=== PATIENT | female | born 1995 | race Caucasian/White ===

== ENCOUNTER 2023-09-04 09:48 | Emergency (ER) | payer MEDICAID ==
[~2023-09-04] VITALS: Ht 154.9 cm; Wt 65.3 kg
[2023-09-04] MEDS ORDERED: LIDO2SOL26 MT (10:53)
[2023-09-04] MEDS ORDERED: CLIN300C70 PO (10:53)
[2023-09-04 10:59] VITALS: BP 140/80; PULSE 80; RESP 18; TEMP 97.4; O2SAT 98
== END 2023-09-04 11:01 | disposition home or self-care (01) ==
LOC: ER 09:48
DX: K13.79 Other lesions of oral mucosa (principal); Z79.2 Long term (current) use of antibiotics; Z79.899 Other long term (current) drug therapy

== ENCOUNTER 2023-10-04 00:07 | Emergency (ER) | payer MEDICAID ==
[~2023-10-04] VITALS: Ht 162.6 cm; Wt 86.2 kg
[~2023-10-04 00:07] MED LIST: CLIN300C70 PO; LIDO2SOL26 MT
[2023-10-04] MEDS: NALOXONE HCL 1MG/ML 2ML SYRINGE IV ONE (00:45)
[2023-10-04 01:08] VITALS: PULSE 90; RESP 19; O2SAT 93
[2023-10-04 01:17] LABS: Basophils # (auto) 0 10 ^3/uL (0-0.2); Basophils % (auto) 0.5 % (0.0-2.0); Eosinophils # (auto) 0 10 ^3/uL (0-0.8); Eosinophils % (auto) 0.2 % (0.0-7.0); Hematocrit 46.7 % (36.0-46.0); Hemoglobin 15.7 g/dL (12.2-16.2); Lymphocytes # (auto) 1.1 10 ^3/uL (0.4-5.4); Lymphocytes % (auto) 15.9 % (10.0-50.0); Mean Corpuscular Hemoglobin 28.7 pg (28.0-32.0); Mean Corpuscular Hgb Conc. 33.7 g/dL (32.0-36.0); Mean Corpuscular Volume 85.3 fL (80.0-100.0); Monocytes # (auto) 0.3 10 ^3/uL (0-1.3); Monocytes % (auto) 4.4 % (0.0-12.0); Neutrophils # (auto) 5.6 10 ^3/uL (1.6-8.6); Red Blood Cells 5.47 10^6/uL (4.0-5.20); Red Cell Distribution Width 13.5 % (11.8-14.3); White Blood Cell 7.1 10^3/uL (4.4-10.8)
[2023-10-04 01:19] LABS: Urine Bacteria MOD /hpf (None Seen); Urine Blood Negative /uL (Negative); Urine Clarity Clear (Clear); Urine Color Colorless (Yellow); Urine Protein, UAD Negative (Negative); Urine Specific Gravity 1.005 (1.001-1.035); Urine Urobilinogen Normal (Negative); Urine WBC 3 /hpf (0 - 5); Urine pH 5.5 (5.0-8.0)
[2023-10-04 01:34] LABS: Acetaminophen < 2.0 UG/ML (10.0-20.0); Alanine Aminotransferase 22 U/L (7-40); Albumin 4.7 g/dL (3.2-4.8); Alkaline Phosphatase 78 U/L (46-116); Anion Gap 10 (5-15); Aspartate Aminotransferase 26 U/L (13-40); BUN/Creatinine Ratio 8.1 (10.0-20.0); Bilirubin, Total 0.3 mg/dL (0.2-1.0); Blood Urea Nitrogen < 5 mg/dL (9-23); Calcium 8.7 mg/dL (8.7-10.4); Carbon Dioxide 22 mmol/L (20-30); Chloride 108 mmol/L (98-107); Glucose 99 mg/dL (74-106); Potassium 3.6 mmol/L (3.5-5.1); Sodium 140 mmol/L (136-145); Total Protein 8.1 g/dL (5.7-8.2)
[2023-10-04 01:35] LABS: Salicylate < 3.0 mg/dL (2.8-20.0)
[2023-10-04 01:44] LABS: Amphetamine Screen, Urine Neg (NEGATIVE); Barbiturate Scree,Urine Neg (NEGATIVE); Benzodiazephine Screen, Urine Neg (NEGATIVE); Cannabinoid Screen, Urine Neg (NEGATIVE); Cocaine Screen, Urine Neg (NEGATIVE); Opiate Scree,Urine Neg (NEGATIVE); Phencyclidine Screen, Urine Neg (NEGATIVE)
[2023-10-04 01:53] LABS: Blood Alcohol 397.4 mg/dL (<10)
[2023-10-04] MEDS: FOLIC ACID 1 MG, MAGNESIUM SULF SDV 50% 8 MEQ, MULTIPLE VITAMIN 10 ML, THIAMINE INJ 100... INJ SCH (04:17)
[2023-10-04] MEDS: THIAMINE 100mg/ml INJ (200mg/2ml VIAL) ONE (04:17)
[2023-10-04 05:08] VITALS: TEMP 97.7
[2023-10-04 08:00] VITALS: PULSE 90; RESP 19; O2SAT 93
[2023-10-04 08:07] VITALS: BP 105/61; PULSE 95; RESP 16; O2SAT 98
[2023-10-04] MEDS ORDERED: NITR-87 PO (08:12)
[2023-10-04] MEDS: cefTRIAXone 1GM/50ML D5W 50 ML IV ONE (08:15)
== END 2023-10-04 11:20 | disposition home or self-care (01) ==
LOC: EDBD 00:07 → ER 00:07
DX: R41.82 Altered mental status, unspecified (principal); R10.2 Pelvic and perineal pain; F10.129 Alcohol abuse with intoxication, unspecified; Z79.899 Other long term (current) drug therapy; Y90.8 Blood alcohol level of 240 mg/100 ml or more
CPT/HCPCS: 36415; 70450; 80053; 80307; 80320; 80329; 81001; 82962; 84702; 85025; 93005; 96365; 96366; 96368; 96375; 99285; J0696; J2310; J3411